=== PATIENT | male | born 2000 | race Caucasian/White ===

== ENCOUNTER → 2020-04-23 | Emergency (ER) | payer OTHER ==
[~2020-04-23] MED LIST: RABIES IMMUNE GLOBULIN 300 INTERNATIONAL UNITS/1ML VIAL (90375) ONE; RABIES VACCINE HUMAN 2.5 INTERNATIONAL UNITS/ML VIAL (90675) As Ordered ONE
== END | disposition home or self-care (01) ==
LOC: M ED 00:23
DX: Z23 Encounter for immunization (principal); Z20.3 Contact with and (suspected) exposure to rabies

== ENCOUNTER 2020-04-26 13:50 | Emergency (ER) | payer OTHER ==
[2020-04-26] MEDS ORDERED: RABIES VACCINE HUMAN 2.5 INTERNATIONAL UNITS/ML VIAL (90675) As Ordered ONE (14:17)
== END 2020-04-26 14:55 | disposition home or self-care (01) ==
LOC: M ED 13:50
DX: Z23 Encounter for immunization (principal); Z20.3 Contact with and (suspected) exposure to rabies

== ENCOUNTER 2020-04-30 14:30 | Emergency (ER) | payer OTHER ==
[2020-04-30] MEDS ORDERED: RABIES VACCINE HUMAN 2.5 INTERNATIONAL UNITS/ML VIAL (90675) As Ordered ONE (16:25)
[2020-04-30] MEDS ORDERED: LIDOCAINE 1% MDV 20ML VIAL As Ordered ONE (16:27)
== END 2020-04-30 15:44 | disposition home or self-care (01) ==
LOC: M ED 14:30
DX: Z20.3 Contact with and (suspected) exposure to rabies (principal); Z23 Encounter for immunization

== ENCOUNTER 2020-05-07 13:34 | Emergency (ER) | payer OTHER ==
[~2020-05-07] VITALS: Ht 182.9 cm; Wt 101.6 kg
[2020-05-07 13:35] VITALS: BP 126/55
[2020-05-07] MEDS ORDERED: RABIES VACCINE HUMAN 2.5 INTERNATIONAL UNITS/ML VIAL (90675) IM ONE (14:00)
== END 2020-05-07 15:29 | disposition home or self-care (01) ==
LOC: M ED 13:34
DX: Z20.3 Contact with and (suspected) exposure to rabies (principal); Z23 Encounter for immunization